=== PATIENT | male | born 1970 | race Caucasian/White ===

== ENCOUNTER 2017-07-13 02:55 | Observation (INO) ==
[2017-07-13] MEDS ORDERED: *HR* HYDROcodone/Acet 5/325 mg TABLET PO ONE ×2 (05:24→06:50)
[2017-07-13] MEDS ORDERED: Tdap (Boostrix) Vaccine 0.5 ML SYRINGE IM ONE (05:27)
[2017-07-13] MEDS ORDERED: 0.9 % Sodium Chloride 1,000 ML IVC ONE (05:36)
[2017-07-13] MEDS ORDERED: Ampicillin/Sulbactam 1,500 MG in 0.9 % Sodium Chloride Mini Bag 100 ML IVPB ONE (05:36)
[2017-07-13] MEDS ORDERED: Ondansetron ODT 4 MG TAB.RAPDIS SL ONE (05:50)
--- NOTE | 2017-07-13 06:02 | Emergency Department Note ---
Disposition Clinical Impression: Flexor tenosynovitis of finger Infected dog bite of left index finger Qualifiers: Encounter type: initial encounter Qualified Code(s): S61.258A - Open bite of other finger without damage to nail, initial encounter; L08.9 - Local infection of the skin and subcutaneous tissue, unspecified; L08.9 - Local infection of the skin and subcutaneous tissue, unspecified; W54.0XXA - Bitten by dog, initial encounter; W54.0XXA - Bitten by dog, initial encounter Disposition: Admitted As Inpatient Condition: Serious Referrals: NONE,PCP [Primary Care Provider] - Forms: ED Satisfaction Letter Time of Disposition: 06:49 Animal Bite HPI - General Chief Complaint: ED Animal Bite Stated Complaint: dog bite Time Seen by Provider: 07/13/17 05:02 Source: patient Nursing Notes Reviewed: Yes Vital Signs Reviewed: Yes - History of Present Illness HPI Narrative: 46-year-old male complains of dog bite to left index finger that occurred greater than 12 hours ago. Patient states he was bit by his dog while an altercation between his dog and another dog. Patient states his dog is up to date on its shots and he states he has no risk of rabies. Patient is not up-to-date on his tetanus. Patient states he has had severe swelling and pain that has been increasing. She states pain currently in his hand 8/10 and 10/10 with movement. Patient states is glad his made him come to the hospital. Patient denies any fevers Patient is right-handed Patient admits to smoking one pack a day - Related Data Previous Rx's Medication Instructions Recorded HYDROcodone/Acet 5/325 mg [Brooks 1 tab PO Q6H PRN #15 tab 07/02/16 5-325 mg] Naproxen [Naprosyn] 500 mg PO BID #20 tablet 07/02/16 Loratadine [Claritin] 10 mg PO DAILY #30 capsule 01/21/17 predniSONE [PredniSONE] 1 each PO DAILY 12 Days tablet 01/21/17 Allergies Allergy/AdvReac Type Severity Reaction Status Date / Time No Known Allergies Allergy Verified 02/09/16 22:29 All systems ED: reviewed and negative except as stated. Review of Systems: As Per HPI Constitutional: Denies: fever, chills Past Medical History - Past Medical History Attestation: Yes The following information was validated with the patient. Source: patient, nursing notes reviewed Medical history: Reports: no medical history Psychiatric history: Reports: no psych history - Social History Smoking Status: Current every day smoker Smokeless Tobacco Status: No Alcohol use: Reports: none Drug use: Reports: none Physical Exam Vital Signs Temperature 98.3 F 07/13/17 03:01 Pulse Rate 92 07/13/17 03:01 Respiratory Rate 16 07/13/17 03:01 Blood Pressure 134/87 07/13/17 03:01 O2 Sat by Pulse Oximetry 98 07/13/17 03:01 Temperature 98.3 F 07/13/17 03:01 Pulse Rate 92 07/13/17 03:01 Respiratory Rate 16 07/13/17 03:01 Blood Pressure 134/87 07/13/17 03:01 O2 Sat by Pulse Oximetry 98 07/13/17 03:01 Oxygen Delivery Oxygen Delivery Room Air CONSTITUTIONAL: Alert and oriented X3, well-nourished, well appearing, in no apparent distress HEAD: Normocephalic; atraumatic. EYES: PERRL, no scleral icterus. NOSE: The nose is normal in appearance without rhinorrhea RESP: Normal chest excursion with respiration; breath sounds clear and equal bilaterally; no wheezes, rhonchi, or rales CARD: Regular rhythm, without murmurs, rub or gallop ABD: Non-distended; non-tender, soft,without rigidity, rebound or guarding SKIN: Normal for age and race; warm and dry; no apparent lesions EXTREMITIES: Pulses are 2 plus and equal times 4 extremities, index finger of left hand is in flexed position, there is pain with passive extension, patient has pain, tenderness to palpation over the tendon, and isolated swelling of the finger. Patient has multiple puncture wounds along the finger. Finger is erythematous and the skin is tense tense - General General appearance: alert, in no apparent distress Course - Reevaluation(s) Reevaluation #1: Patient still has severe pain in the left hand. Ordered a second dose of Brooks 5/325 Time: 06:51 Vital Signs Temperature 98.3 F 07/13/17 03:01 Pulse Rate 92 07/13/17 03:01 Respiratory Rate 16 07/13/17 03:01 Blood Pressure 134/87 07/13/17 03:01 O2 Sat by Pulse Oximetry 98 07/13/17 03:01 Temperature 98.3 F 07/13/17 03:01 Pulse Rate 92 07/13/17 03:01 Respiratory Rate 16 07/13/17 03:01 Blood Pressure 134/87 07/13/17 03:01 O2 Sat by Pulse Oximetry 98 07/13/17 03:01 Oxygen Delivery Oxygen Delivery Room Air Animal Bite - MDM Narrative Medical decision making narrative: Dog bite resulting in a flexor tenosynovitis. Patient started on Unasyn, patient given tetanus booster, labs ordered include blood cultures. Patient understands that this is a serious infection of the tendon which will require orthopedic consult for surgical washout. Dr. Bergeron of orthopedics consulted. He requested patient be admitted to medicine and he will see the patient in consult. Dr. Tomlinson the hospitalist has accepted the pt for admission in stable condition. He requested MRI be ordered for the left hand. Order has been placed. - Lab Data Lab results reviewed: Yes I reviewed the patient's lab results. Lab results narrative: Short CBC 07/13/17 Range/Units 05:49 WBC 13.2 H (4.3-11.1) K/mcL Hgb 16.7 (12.9-16.9) g/dL Hct 49.8 (37.5-50.1) % Plt Count 292 (140-400) K/mcL Neutrophils # 7.2 (1.6-8.9) K/mcL BMP 07/13/17 Range/Units 05:49 Sodium 138 (136-145) mEq/L Potassium 3.9 (3.5-5.1) mEq/L Chloride 107 (98-107) mEq/L Carbon Dioxide 25 (23-29) mEq/L BUN 14 (6-20) mg/dL Creatinine 0.91 (0.70-1.30) mg/dL Glucose 95 (70-105) mg/dL Calcium 9.5 (8.6-10.3) mg/dL Result diagrams: 07/13/17 05:49 07/13/17 05:49 Lab Results 07/13/17 07/13/17 Range/Units 05:49 05:49 WBC 13.2 H (4.3-11.1) K/mcL RBC 5.62 H (4.19-5.50) M/mcL Hgb 16.7 (12.9-16.9) g/dL Hct 49.8 (37.5-50.1) % MCV 88.6 (83.0-100.0) fL MCH 29.7 (28.0-33.3) pg MCHC 33.5 (31.6-35.5) g/dL RDW 12.1 (11.5-14.5) % Plt Count 292 (140-400) K/mcL MPV 11.4 (9.4-12.4) fL Immature Gran % 0.5 (0-4) % Seg Neutrophils % 54.6 % Lymphocytes % 33.5 % Monocytes % 9.8 % Eosinophils % 1.3 % Basophils % 0.3 % Neutrophils # 7.2 (1.6-8.9) K/mcL Lymphocytes # 4.4 (0.6-4.6) K/mcL Monocytes # 1.3 (0.0-1.3) K/mcL Eosinophils # 0.2 (0.0-0.6) K/mcL Basophils # 0.0 (0.0-0.2) K/mcL Sodium 138 (136-145) mEq/L Potassium 3.9 (3.5-5.1) mEq/L Chloride 107 (98-107) mEq/L Carbon Dioxide 25 (23-29) mEq/L BUN 14 (6-20) mg/dL Creatinine 0.91 (0.70-1.30) mg/dL Est GFR ( Amer) > 60 (> 60) Est GFR (Non-Af Amer) > 60 (> 60) BUN/Creatinine Ratio 15 (6-26) Glucose 95 (70-105) mg/dL Calculated Osmolality 286 (280-300) Calcium 9.5 (8.6-10.3) mg/dL - Radiology Data Radiology results reviewed: Yes I reviewed the patient's radiology results. Hand X-Ray 07/13/17 03:03 IMPRESSION: Normal x-ray of the hand. D/ / Ken Persaud MD / Ken Persaud MD Interpreting Provider: Ken Persaud MD Attestation Statement - Attestation Attestation: I examined this patient and my medical decision-making was reviewed with the Resident Physician. I agree with the documented findings, disposition and treatment plan as described except to the extent set forth below. Patient to the ED with a dog bite. Patient was bit in the left index finger this morning. Has become increasingly swollen and red and painful. On examination is a puncture wound on the palmar surface of the hand at the base of the right index finger. Over the MCP joint. He is unable to flex or extend the finger. It swollen and red. Plan. The patient's exam is consistent with flexor tenosynovitis. He will be started on broad-spectrum IV antibiotic admitted to the hospitalist with a hand consult.
[2017-07-13 06:22] LABS: BUN/Creatinine Ratio 15 (6-26); Blood Urea Nitrogen 14 mg/dL (6-20); Calcium 9.5 mg/dL (8.6-10.3); Carbon Dioxide 25 mEq/L (23-29); Chloride 107 mEq/L (98-107); Glucose 95 mg/dL (70-105); Osmolality,Calculated 286 (280-300); Potassium 3.9 mEq/L (3.5-5.1); Sodium 138 mEq/L (136-145); eGFR For African Americans > 60 (> 60); eGFR For Non-African Americans > 60 (> 60)
[2017-07-13 06:31] LABS: Basophils % 0.3 %; Eosinophils # 0.2 K/mcL (0.0-0.6); Eosinophils % 1.3 %; Hematocrit 49.8 % (37.5-50.1); Hemoglobin 16.7 g/dL (12.9-16.9); Immature Granulocytes % 0.5 % (0-4); Lymphocytes # 4.4 K/mcL (0.6-4.6); Lymphocytes % 33.5 %; Mean Corpuscular HGB Conc 33.5 g/dL (31.6-35.5); Mean Corpuscular Hemoglobin 29.7 pg (28.0-33.3); Mean Corpuscular Volume 88.6 fL (83.0-100.0); Mean Platelet Volume 11.4 fL (9.4-12.4); Monocytes # 1.3 K/mcL (0.0-1.3); Monocytes % 9.8 %; Neutrophils # 7.2 K/mcL (1.6-8.9); Platelet Count 292 K/mcL (140-400); Red Blood Count 5.62 M/mcL (4.19-5.50); Red Cell Distribution Width 12.1 % (11.5-14.5); Segmented Neutrophils % 54.6 %
--- NOTE | 2017-07-13 08:02 | Internal Med History&Physical ---
Date of Encounter: 07/13/17 Time of Encounter: 07:58 Assessment and Plan (1) Leukocytosis Current visit: Yes Status: Acute likely reactive due to her acute infection Qualifiers: Leukocytosis type: unspecified Qualified Code(s): D72.829 - Elevated white blood cell count, unspecified (2) Flexor tenosynovitis of finger Current visit: Yes Status: Acute Acute due to a dog bite surgeon has been consulted from the ER (3) Infected dog bite of left index finger Current visit: Yes Status: Acute Acute was started on Unasyn IV Qualifiers: Encounter type: initial encounter Qualified Code(s): S61.258A - Open bite of other finger without damage to nail, initial encounter; L08.9 - Local infection of the skin and subcutaneous tissue, unspecified; L08.9 - Local infection of the skin and subcutaneous tissue, unspecified; W54.0XXA - Bitten by dog, initial encounter; W54.0XXA - Bitten by dog, initial encounter Internal Medicine - H&P: HPI Chief complaint: dog bite Admitted From: Emergency Dept Plans for Post Hospital Care: Home History of present illness: Mr. Munroe is a 46 year old male Patient with no significant medical history patient was bitten by his dog about 12 hours ago he has an open wound and especially his left index finger came into the emergency room. Index finger is much more swollen with a redness . admitted for antibiotics and orthopedic doctor Leeanne has been consulted for evaluation. Patient will be given pain medication and started on the Unasyn white count is mildly elevated . denies any fever or chills according to patient the dog is up-to-date with shots. Past Med Surg Social Fam HX - Past Medical History Medical history: no medical history Psychiatric history: no psych history - Social History Smoking Status: Current every day smoker Smokeless Tobacco Status: No Alcohol use: none Drug use: none Internal Medicine - H&P: Meds HYDROcodone/Acet 5/325 mg [[place] 5-325 mg] 1 tab PO Q6H PRN #15 tab 07/02/16 [Rx ] Naproxen [Naprosyn] 500 mg PO BID #20 tablet 07/02/16 [Rx] Loratadine [Claritin] 10 mg PO DAILY #30 capsule 01/21/17 [Rx] predniSONE [PredniSONE] 1 each PO DAILY 12 Days tablet 01/21/17 [Rx] 3 Allergy/AdvReac Type Severity Reaction Status Date / Time No Known Allergies Allergy Verified 02/09/16 22:29 All Systems PM: A 10-system review of systems was performed and is negative for pertinent findings except as documented above in the HPI. - Constitutional Constitutional: no chills, no fever(s), no night sweats - EENT Eyes: no change in vision, no discharge, no pain, no photophobia Ears: no ear discharge, no ear pain, no tinnitus Nose, mouth and throat: no dysphagia, no nasal discharge, no neck pain, no sore throat - Cardiovascular Cardiovascular ROS IM: no chest pain, no diaphoresis, no dyspnea, no lightheadedness, no palpitations, no syncope - Respiratory Respiratory: no cough, no dyspnea, no wheezing, no excessive phlegm production - Gastrointestinal Gastrointestinal: no abdominal pain, no diarrhea, no hematemesis, no hematochezia, no melena, no nausea, no vomiting - Musculoskeletal Musculoskeletal ROS IM: myalgias, tingling, other - Integumentary Integumentary IM: erythema - Neurological Neurological ROS: no confusion, no convulsions, no focal weakness, no numbness, no tingling, no tremor(s) - Constitutional Vitals: Temp Pulse Resp BP Pulse Ox 98.3 F 80 18 136/97 98 07/13/17 03:01 07/13/17 06:40 07/13/17 06:40 07/13/17 06:40 07/13/17 03:01 - Eye Eye exam: Present: PERRL, conjuntiva pink, sclera anicteric Pupils: Present: PERRL - Neck Neck exam general surgery: Present: supple, trachea midline. Absent: lymphadenopathy - Respiratory Respiratory exam: Present: CTAB. Absent: accessory muscle use, rales, rhonchi, wheezes - Cardiovascular Cardiovascular exam: Present: RRR, +S1, +S2. Absent: diastolic murmur, gallop, rubs, systolic murmur - GI/Abdominal GI/Abdominal exam: Present: normal bowel sounds, soft, no peritoneal signs. Absent: distended, tenderness - Extremities Exam Extremities exam: Present: tenderness, warm Internal Med - H&P Results - Labs CBC & Chem 7: 07/13/17 05:49 07/13/17 05:49
[2017-07-13] MEDS ORDERED: Naloxone 0.4 MG/ML INJ IVP PRN (08:06)
[2017-07-13] MEDS ORDERED: Acetaminophen 325 MG TABLET PO PRN (08:06)
[2017-07-13] MEDS: Nicotine 21 MG PATCH.TD24 TD SCH (08:59)
[2017-07-13] MEDS: traMADol 50 MG TABLET PO PRN ×2 (09:47→17:36)
--- NOTE | 2017-07-13 11:41 | Orthopedic Consult Note ---
Date of Encounter: 07/13/17 Time of Encounter: 07:30 Assessment and Plan (1) Infected dog bite of left index finger Current Visit: Yes Status: Acute The patient has a mild to moderate cellulitis after a dog bite less than 24 hours ago. My suspicion is low for acute purulent flexor tenosynovitis. He is currently on Unasyn and I agree with this. Elevation and motion exercises to the left index finger. I will follow clinically over the next 24 hours and reassess the patient tomorrow. If he worsens clinically we will proceed to the operating room for operative incision, drainage, irrigation, debridement. Should he improve I anticipate discharge on Augmentin. Qualifiers: Encounter type: initial encounter Qualified Code(s): S61.258A - Open bite of other finger without damage to nail, initial encounter; L08.9 - Local infection of the skin and subcutaneous tissue, unspecified; L08.9 - Local infection of the skin and subcutaneous tissue, unspecified; W54.0XXA - Bitten by dog, initial encounter; W54.0XXA - Bitten by dog, initial encounter History of Present Illness HPI: Mr. Munroe is a 46 year old male who is currently admitted to the hospitalist after a dog bite to left hand. Injury occurred yesterday and was patient's own Tamazight naik. Apparently the shots are up-to-date. He came to the emergency department for further evaluation and management. The emergency department doctor was concerned for flexor tenosynovitis. The patient was therefore admitted to the hospitalist and I was consulted to assist in the evaluation and management of this patient. The patient complains of isolated pain to the left index finger which is mild to moderate in severity and is achy. Slightly altered sensation of the tip of the digit. No other injuries noted. No other associated signs or symptoms. The pain is worse with movement of the finger better with rest. No other modifying factors. Past Med Surg Social Fam HX - Past Medical History Medical history: no medical history Psychiatric history: no psych history - Past Surgical History Surgical History: no surgical history - Social History Smoking Status: Current every day smoker Packs per day: 1.5 Smokeless Tobacco Status: No Alcohol use: none Drug use: none Medications and Allergies No Known Home Drugs 07/13/17 [History] 3 Allergy/AdvReac Type Severity Reaction Status Date / Time No Known Allergies Allergy Verified 02/09/16 22:29 All Systems Reviewed: A 10-system review of systems was performed and is negative for pertinent findings except as documented above in the HPI. Physical Exam - Constitutional Vitals: Temp Pulse Resp BP Pulse Ox 98.2 F 75 16 146/68 97 07/13/17 10:49 07/13/17 10:49 07/13/17 10:49 07/13/17 10:49 07/13/17 10:49 CONSTITUTIONAL -Vitals reviewed -The patient is well developed, well nourished, well groomed PSYCHIATRIC -Fully alert and oriented -Pleasant mood LEFT UPPER EXTREMITY Inspection shows multiple small puncture wounds about the left index finger. All measure less than 5 mm in size. He has one that is localized volarly over the MP flexion crease and a volar/ulnar lesion over the DIP flexion crease and one mid dorsal lesion between the proximal and distal interphalangeal joints. He has a small bite wound and the hand dorsally and volarly both proximal to the metacarpal head. Minimal swelling overall to the digit and minimal erythema. Overall it is relatively clinically unimpressive. The finger can be passively straightened to full extension without significant worsening of his pain. He does not hold the finger in a flexed position. He is able to grossly flex and extend the digit was some limitation due to the pain and swelling. The patient can actively flex and extend all digits, extend the thumb, cross the index and long fingers, make an okay sign, and oppose the thumb. The fingertips are all grossly sensate and well-perfused, and the radial artery pulse is 2+. Diagnostic Imaging: I did personally review and interpret x-rays of the left hand which do not show any fractures or dislocations Results - Labs Result Diagrams: 07/13/17 05:49 07/13/17 05:49 Labs: Abnormal lab results WBC 13.2 K/mcL (4.3-11.1) H 07/13/17 05:49 RBC 5.62 M/mcL (4.19-5.50) H 07/13/17 05:49 All other labs normal. Consult Discharge Plan - Plan Referrals: NONE,PCP [Primary Care Provider] -
[2017-07-13] MEDS: Ampicillin/Sulbactam 1,500 MG in 0.9 % Sodium Chloride Mini Bag 100 ML IVPB SCH ×2 (13:40→19:00)
[2017-07-13] MEDS: Ketorolac 15 MG/ML VIAL IVP PRN (17:36)
[2017-07-14] MEDS: traMADol 50 MG TABLET PO PRN ×2 (00:15→09:41)
[2017-07-14] MEDS: Ketorolac 15 MG/ML VIAL IVP PRN ×2 (00:15→06:38)
[2017-07-14] MEDS: Ampicillin/Sulbactam 1,500 MG in 0.9 % Sodium Chloride Mini Bag 100 ML IVPB SCH ×5 (00:16→23:30)
[2017-07-14 05:55] LABS: Hematocrit 43.6 % (37.5-50.1); Hemoglobin 14.4 g/dL (12.9-16.9); Mean Corpuscular Volume 90.8 fL (83.0-100.0); Platelet Count 203 K/mcL (140-400); Red Cell Distribution Width 12.3 % (11.5-14.5)
[2017-07-14] MEDS: *HR* Enoxaparin 40 MG/0.4 ML SYRINGE SQ SCH (06:35)
[2017-07-14 06:37] LABS: Alanine Aminotransferase 12 Units/L (7-52); Albumin 3.5 g/dL (3.5-5.7); Albumin/Globulin Ratio 1.7 (1.1-2.2); Alkaline Phosphatase 68 Units/L (34-104); Aspartate Amino Transferase 13 Units/L (13-39); BUN/Creatinine Ratio 23 (6-26); Bilirubin,Total 0.4 mg/dL (0.3-1.0); Blood Urea Nitrogen 17 mg/dL (6-20); Calcium 8.4 mg/dL (8.6-10.3); Carbon Dioxide 23 mEq/L (23-29); Chloride 114 mEq/L (98-107); Chol/HDL Ratio 3.6 (0-4.9); Cholesterol 121 mg/dL (< 200); Globulin 2.1 g/dL (2.4-3.5); Glucose 98 mg/dL (70-105); HDL Cholesterol 34 mg/dL (40-59); LDL Cholesterol,Calculated 70 mg/dL (0-99); Magnesium 2.2 mg/dL (1.6-2.6); Osmolality,Calculated 292 (280-300); Potassium 4.1 mEq/L (3.5-5.1); Sodium 140 mEq/L (136-145); Total Protein 5.6 g/dL (6.4-8.9); Triglycerides 85 mg/dL (< 150); eGFR For African Americans > 60 (> 60); eGFR For Non-African Americans > 60 (> 60)
[2017-07-14] MEDS ORDERED: Lidocaine/EPI 1:100k 1% 50 ML VIAL INFILT ONE (08:37)
[2017-07-14] MEDS: Nicotine 21 MG PATCH.TD24 TD SCH (09:38)
--- NOTE | 2017-07-14 09:52 | Orthopedics Progress Note ---
Date of Encounter: 07/14/17 Time of Encounter: 09:48 - Assessment and Plan (1) Infected dog bite of left index finger Current Visit: Yes Status: Acute Qualifiers: Encounter type: initial encounter Qualified Code(s): S61.258A - Open bite of other finger without damage to nail, initial encounter; L08.9 - Local infection of the skin and subcutaneous tissue, unspecified; L08.9 - Local infection of the skin and subcutaneous tissue, unspecified; W54.0XXA - Bitten by dog, initial encounter; W54.0XXA - Bitten by dog, initial encounter Subjective Interval history: S: Persistent pain to the left index finger No new complaints O: Afebrile, VSS Left index finger with mild swelling, minimal erythema The two dog bite punture wounds have focally swollen and reddened He can grossly flex and extend the index finger The fingertip is sensate and well perfused A: Left index finger infection after dogbite P: My recommendation is to spread open the dogbite wounds on the finger to encourage drainage After informed consent I did set up a sterile field around the index finger I anesthetized the finger with 10 ccs of 1% lidocaine with epinephrine I made a 1 cm incision over the dorsal puncture wound and I carriec the volar/ ulnar wound in aurelio fashion over the middle phalangeal region. There was no gross purulence. After spreading the tissues open, I cultured swabbed them, then irrigated, then packed open. I applied a sterile dressing. Daily dressing and packing changes. Continue Abx per the primary team. I anticipate discharge tomorrow on augmentin. Objective Vital signs: Vital Signs Temp Pulse Resp BP Pulse Ox 07/14/17 07:05 98.3 F 68 16 115/70 96 07/14/17 04:11 98.6 F 77 18 119/75 95 07/14/17 00:07 98.5 F 76 19 117/73 97 07/13/17 18:52 98.9 F 80 18 123/79 95 07/13/17 14:54 98.3 F 90 16 105/63 99 07/13/17 10:49 98.2 F 75 16 146/68 97 Intake and Output 07/13/17 07/14/17 07/14/17 23:59 07:59 15:59 Intake Total 1020 / 1020 100 / 100 Output Total 0 / 0 0 / 0 Balance 1020 / 1020 100 / 100 Intake: IV Fluids 100 / 100 100 / 100 Unasyn 1,500 mg In 0.9 % Sodium 100 / 100 100 / 100 Chloride (Mini-Bag +) 100 ML @ 200 mls/hr IVPB Q6HR JACKELIN Rx#: [id number] Oral 920 / 920 0 / 0 Output: Urine 0 / 0 0 / 0 Other: Meal Dinner Percent of Meal Consumed 100% # Voids 1 # Bowel Movements 0 Blood Glucose* 91 - Labs CBC & BMP: 07/14/17 05:49 07/14/17 05:49 Labs: Abnormal lab results Chloride 114 mEq/L (98-107) H 07/14/17 05:49 POC Glucose 91 (58-89) H 07/14/17 06:00 Calcium 8.4 mg/dL (8.6-10.3) L 07/14/17 05:49 Serum Total Protein 5.6 g/dL (6.4-8.9) L 07/14/17 05:49 Globulin 2.1 g/dL (2.4-3.5) L 07/14/17 05:49 HDL Cholesterol 34 mg/dL (40-59) L 07/14/17 05:49 Consult Discharge Plan - Plan Referrals: NONE,PCP [Primary Care Provider] -
[2017-07-14] MEDS ORDERED: *HR* FentaNYL (PF) 100 MCG/2 ML VIAL IVP ONE (12:54)
[2017-07-14] MEDS: *HR* FentaNYL (PF) 100 MCG/2 ML VIAL IVP PRN ×2 (13:49→20:30)
[2017-07-14] MEDS: *HR* OxyCODONE Immed Rel 5 MG TABLET PO PRN ×2 (16:58→23:30)
--- NOTE | 2017-07-14 17:18 | Internal Med Progress Note ---
Date of Encounter: 07/14/17 Time of Encounter: 13:10 - Assessment and plan (1) Infected dog bite of left index finger Current Visit: Yes Status: Acute Assessment and plan: Patient presented with acute dog bites to left second finger. Orthopedic surgery on board, patient underwent bedside incision and drainage of left index finger dog bites to enable infection and drainage, no isaiah purulence noted per orthopedic's note. Follow-up Gram stain and culture. Continue IV antibiotics- Unasyn. Pain control with when necessary oral oxycodone and IV fentanyl. Supportive care, left hand elevation. Qualifiers: Encounter type: initial encounter Qualified Code(s): S61.258A - Open bite of other finger without damage to nail, initial encounter; L08.9 - Local infection of the skin and subcutaneous tissue, unspecified; L08.9 - Local infection of the skin and subcutaneous tissue, unspecified; W54.0XXA - Bitten by dog, initial encounter; W54.0XXA - Bitten by dog, initial encounter (2) Tobacco abuse Current Visit: Yes Status: Chronic Assessment and plan: Continue nicotine transdermal patch. - Subjective Interval history: Noted to be in significant pain, with deep breathing and diaphoresis. Patient underwent incision and drainage of left second finger due to dog bites. No fever, chills but does have palpitations and subjective shortness of breath due to pain. - Constitutional Vitals: Temp Pulse Resp BP Pulse Ox 98.1 F 77 16 141/75 96 07/14/17 14:37 07/14/17 14:37 07/14/17 14:37 07/14/17 14:37 07/14/17 14:37 General appearance: Present: A&O X 3, severe distress (Due to pain), answers questions appropriately - Respiratory Respiratory exam: Present: CTAB. Absent: accessory muscle use, rales, rhonchi, wheezes - Cardiovascular Cardiovascular exam: Present: RRR, +S1, +S2, tachycardia. Absent: diastolic murmur, gallop, rubs, systolic murmur - GI/Abdominal GI/Abdominal exam: Present: normal bowel sounds, soft, no peritoneal signs. Absent: distended, tenderness - Extremities Exam Extremities exam: Present: full ROM, warm, radial pulses palpable and symmetrical. Absent: calf tenderness, cyanotic, pedal edema Additional comments: Left index and long fingers in surgical dressing, dried bloodstained noted - Neurological Exam Neurological exam: Present: CN II-XII intact, oriented X3, no focal deficits. Absent: pronater drift, facial droop, speech deficit - Skin Skin exam: Present: dry, intact Internal Medicine: Result - Labs CBC & Chem 7: 07/14/17 05:49 07/14/17 05:49 Labs: Short CBC 07/14/17 Range/Units 05:49 WBC 8.6 (4.3-11.1) K/mcL Hgb 14.4 D (12.9-16.9) g/dL Hct 43.6 (37.5-50.1) % Plt Count 203 (140-400) K/mcL BMP 07/14/17 05:49 Sodium 140 Potassium 4.1 Chloride 114 H Carbon Dioxide 23 BUN 17 Creatinine 0.75 Glucose 98 Calcium 8.4 L Liver Function 07/14/17 Range/Units 05:49 Total Bilirubin 0.4 (0.3-1.0) mg/dL AST 13 (13-39) Units/L ALT 12 (7-52) Units/L Alkaline Phosphatase 68 (34-104) Units/L Albumin 3.5 (3.5-5.7) g/dL Consult Discharge Plan - Plan Referrals: NONE,PCP [Primary Care Provider] -
[2017-07-15] MEDS: *HR* FentaNYL (PF) 100 MCG/2 ML VIAL IVP PRN ×2 (02:16→08:27)
[2017-07-15] MEDS: Ampicillin/Sulbactam 1,500 MG in 0.9 % Sodium Chloride Mini Bag 100 ML IVPB SCH ×2 (05:30→11:29)
[2017-07-15] MEDS: *HR* OxyCODONE Immed Rel 5 MG TABLET PO PRN ×2 (05:30→11:38)
[2017-07-15] MEDS: *HR* Enoxaparin 40 MG/0.4 ML SYRINGE SQ SCH (05:31)
[2017-07-15] MEDS ORDERED: Ketorolac 30 MG/ML VIAL IVP PRN (07:58)
[2017-07-15] MEDS: Nicotine 21 MG PATCH.TD24 TD SCH (08:07)
--- NOTE | 2017-07-15 08:18 | Orthopedics Progress Note ---
Date of Encounter: 07/15/17 Time of Encounter: 08:16 - Assessment and Plan (1) Infected dog bite of left index finger Current Visit: Yes Status: Acute Qualifiers: Encounter type: initial encounter Qualified Code(s): S61.258A - Open bite of other finger without damage to nail, initial encounter; L08.9 - Local infection of the skin and subcutaneous tissue, unspecified; L08.9 - Local infection of the skin and subcutaneous tissue, unspecified; W54.0XXA - Bitten by dog, initial encounter; W54.0XXA - Bitten by dog, initial encounter Subjective Interval history: S: Pain had been in reasonably good control until this morning during dressing change O: Afebrile, VSS Left index finger with mild swelling, overall unchanged Improved redness Paching pulled from wounds. No drainage. Repacked He can grossly flex and extend the index finger The fingertip is sensate and well perfused A: Left index finger infection after dogbite P: Pain increased likely from manipulation of wound and packing Toradol ordered for this Orthopedically stable Daily dressing and packing changes Elevation and motion exercises to reduce the risk of stiffness. Objective Vital signs: Vital Signs Temp Pulse Resp BP Pulse Ox 07/15/17 07:56 98.6 F 85 16 127/67 95 07/15/17 05:45 98.0 F 07/15/17 03:26 98.3 F 59 18 124/87 98 07/14/17 22:50 98.5 F 81 16 124/77 95 07/14/17 19:28 98.6 F 82 17 117/73 97 07/14/17 14:37 98.1 F 77 16 141/75 96 07/14/17 10:23 98.2 F 74 14 127/75 97 Intake and Output 07/14/17 07/15/17 07/15/17 23:59 07:59 15:59 Intake Total 340 / 340 100 / 100 Balance 340 / 340 100 / 100 Intake: IV Fluids 100 / 100 100 / 100 Unasyn 1,500 mg In 0.9 % Sodium 100 / 100 100 / 100 Chloride (Mini-Bag +) 100 ML @ 200 mls/hr IVPB Q6HR JACKELIN Rx#: [id number] Oral 240 / 240 0 / 0 Other: Meal Dinner Percent of Meal Consumed 100% # Voids 1 1 - Labs CBC & BMP: 02/11/18 05:49 07/14/17 05:49 Labs: Abnormal lab results Chloride 114 mEq/L (98-107) H 07/14/17 05:49 POC Glucose 91 (58-89) H 07/14/17 06:00 Calcium 8.4 mg/dL (8.6-10.3) L 07/14/17 05:49 Serum Total Protein 5.6 g/dL (6.4-8.9) L 07/14/17 05:49 Globulin 2.1 g/dL (2.4-3.5) L 07/14/17 05:49 HDL Cholesterol 34 mg/dL (40-59) L 07/14/17 05:49 Consult Discharge Plan - Plan Referrals: NONE,PCP [Primary Care Provider] -
[2017-07-15 11:21] VITALS: BP 123/72
--- NOTE | 2017-07-15 13:17 | Discharge Summary ---
Date of Encounter: 07/15/17 Time of Encounter: 11:00 - Discharge Diagnosis (1) Infected dog bite of left index finger Priority: Primary Status: Acute Qualifiers: Encounter type: initial encounter Qualified Code(s): S61.258A - Open bite of other finger without damage to nail, initial encounter; L08.9 - Local infection of the skin and subcutaneous tissue, unspecified; L08.9 - Local infection of the skin and subcutaneous tissue, unspecified; W54.0XXA - Bitten by dog, initial encounter; W54.0XXA - Bitten by dog, initial encounter (2) Tobacco abuse Priority: Secondary Status: Chronic - Discharge Medications Prescriptions: OxyCODONE Immed Rel [Roxicodone 5 MG] 5 mg PO Q6HR PRN 7 Days #15 tablet PRN Reason: pain>7 Amoxicillin/Clavulanate [Augmentin] 875 mg PO BIDWM #20 tablet Home Medications: Acetaminophen [Tylenol] 650 mg PO Q6HR PRN tablet 07/15/17 [Rx] Amoxicillin/Clavulanate [Augmentin] 875 mg PO BIDWM #20 tablet 07/15/17 [Rx] OxyCODONE Immed Rel [Roxicodone 5 MG] 5 mg PO Q6HR PRN 7 Days #15 tablet [Rx] Allergies/Adverse Reactions: 3 Allergy/AdvReac Type Severity Reaction Status Date / Time No Known Allergies Allergy Verified 02/09/16 22:29 Date of admission: 07/13/17 06:56 Primary care physician: PCP NONE Consults: 07/13/17 08:14 Consult to Physician [CONS] Routine Consulting Provider: Augusto Bergeron Reason for Consult: dod bite already called by ER Time Notified: 08:14 Call Completed: No Discharging clinician: Bisi Barnett Anticipated date of discharge: 07/15/17 - Patient Status Disposition: Home, Self-Care Condition: Good Functional capacity at discharge: independent ambulation Overall status at discharge: patient is progressing back to baseline - Discharge Instructions Instructions: Animal Bite (DC) Follow Up With: NONE,PCP [Primary Care Provider] - Additional Instructions: F/up with Orthopedics in 1 week - Diet and Activity Activity: resume usual activities as tolerated, other (left index finger packing and dressing daily, per Orthopedics recommendations) Diet: advance to your usual diet Hospital course: Mr. Munroe is a 46 year old male with no significant past medical history, was admitted with infected dog bite to his left 2nd finger. Left hand XRay shoed no trauma/fracture. He was started on IV antibiotics- Unasyn and supportive care with IV hydration, pain control with PRN IV Fentanyl and PO Percocet. Blood cultures remained negative. He was seen by Orthopedic surgery and underwent bedside I&D of puncture wounds to enhance healing by allowing drainage. He is currently doing well and is stable for discharge from Orthopedics standpoint, on oral antibiotics and Orthopedics f/up. He was taught about wound care with packing of his left 2nd finger wounds. Time spent discussing smoking cessation with patient: 3 to 10 minutes - Time Spent with Patient Total time spent providing and/or coordinating discharge services: Greater than 30 minutes (40 min) - Constitutional Vitals: Temp Pulse Resp BP Pulse Ox 98.9 F 67 18 123/72 98 07/15/17 11:20 07/15/17 11:20 07/15/17 11:20 07/15/17 11:20 07/15/17 11:20 General appearance: Present: A&O X 3, answers questions appropriately - Cardiovascular Cardiovascular exam: Present: RRR, +S1, +S2. Absent: diastolic murmur, gallop, rubs, systolic murmur - Extremities Exam Extremities exam: Present: warm, radial pulses palpable and symmetrical. Absent : calf tenderness, cyanotic, pedal edema Additional comments: left hand dressing intact
== END 2017-07-15 13:46 | disposition home or self-care (01) ==
LOC: EMEROO 02:55 → 3ANU 02:55 → SUATTDRO 06:56 → 3ANU 07:17
PROVIDERS: ADMIT Family Medicine; ATTEND Internal Medicine